=== PATIENT | female | born 1980 | race Hispanic/Latino ===

== ENCOUNTER 2016-11-12 17:38 | Observation (INO) | payer OTHER ==
[~2016-11-12] VITALS: Ht 160 cm; Wt 86.2 kg
[2016-11-12] MEDS ORDERED: LEVOTHYROXINE137 MCG PO (18:22)
[2016-11-12] MEDS ORDERED: FOLIC ACID1 M1 PO (18:22)
[2016-11-12] MEDS ORDERED: LIOTHYRONINE SO5 MC1 PO (18:22)
[2016-11-12] MEDS ORDERED: FLUTICASONE PRO16 GM NASB (18:23)
[2016-11-12] MEDS ORDERED: VITAMIN D1000 UNIT PO (18:23)
[2016-11-12] MEDS ORDERED: VITAMIN B122500 MC1 PO (18:24)
[2016-11-12] MEDS ORDERED: HYDROCODON-ACE1 EAC3 PO (18:25)
[2016-11-12] MEDS ORDERED: VITAMIN D350000 UNIT PO (18:25)
[2016-11-12] MEDS ORDERED: CYANOCOBAL1000 MCG/2 IM (18:25)
[2016-11-12] MEDS ORDERED: QSYMIA 7.5 MG-1 EACH (18:26)
--- NOTE | 2016-11-12 18:30 | ED GENERAL ADULT ---
See Addendum History of Present Illness General Chief Complaint: General Adult Stated Complaint: UNABLE TO SWALLOW S/P NERVE BLOCK Source: patient, ANESTHESIOLIGST Exam Limitations: no limitations Vital Signs & Intake/Output Vital Signs & Intake/Output Vital Signs Date Time Temp Pulse Resp B/P B/P Pulse O2 O2 Flow FiO2 Mean Ox Delivery Rate 11/13 0737 98.5 78 18 108/64 94 Room Air 11/12 2313 98.4 99 18 130/72 96 Room Air 11/12 2240 Room Air 11/12 2030 96 Room Air 11/128 97.0 98 18 124/76 96 Room Air 11/12 1747 98.4 80 16 124/80 98 Room Air Room Air ED Intake and Output 11/13 0000 11/12 1200 Intake Total Output Total Balance Patient 190 lb Weight Allergies Coded Allergies: No Known Allergies (11/12/16) Reconcile Medications Cholecalciferol (Vitamin D3) (Vitamin D3) 50,000 UNIT CAPSULE 1 CAP PO QTHURS SUPPLEMENT (Reported) Cyanocobalamin (Vitamin B-12) (Cyanocobalamin Injection) 1,000 MCG/ML VIAL 1 ML IM Q30D SUPPLEMENT (Reported) Fluticasone Propionate 50 MCG/ACTUATION SPRAY.SUSP 2 SPRAY NASB PRN ALLERGIES (Reported) Folic Acid 1 MG TABLET 1 TAB PO DAILY SUPPLEMENT (Reported) Hydrocodone/Acetaminophen (Hydrocodon-Acetaminoph 7.5-325) 7.5 MG-325 MG TABLET 1 TAB PO AD PRN PAIN (Reported) Levothyroxine Sodium 137 MCG TABLET 1 TAB PO DAILY THYROID (Reported) Liothyronine Sodium 5 MCG TABLET 1 TAB PO DAILY THYROID (Reported) Phentermine/Topiramate (Qsymia 7.5 MG-46 MG Capsule) (Unknown Strength) CPMP.24HR (Unknown Dose) UNKNOWN (Reported) Triage Note: PT BIBA FROM [facility] FOR INABILITY TO SWALLOW, UNABLE TO TAKE A DEEP BREATH, AND A HOARSE VOICE S/P RIGHT SUBCLAVICULAR NERVE BLOCK. PT IS ALERT AND ORIENTED. DENIES COMPLAINTS, STATES PAIN IN RIGHT ARM IS CONTROLED. PT WAS HAVING SURERY ON RIGHT THUMB DUE TO ARTHRITIS Triage Nurses Notes Reviewed? yes Onset: Gradual Duration: hour(s):, continues in ED Timing: single episode today Injury Environment: OR Severity: severe : No Patient currently breastfeeds: No HPI: Patient presents for evaluation of a hoarse voice, trouble swallowing and right thumb pain status post right thumb arthroplasty. 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 The patient is having difficulty swallowing preventing her from taking pain medications. According to the anesthesiologist this is a known and predictable complication of this particular block. Past History Travel History Traveled to [place] past 21 day No Medical History Any Pertinent Medical History? 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 No Review of Systems Review of Systems Constitutional: Reports: no symptoms. EENTM: Reports: see HPI. Respiratory: Reports: no symptoms. Cardiovascular: Reports: no symptoms. GI: Reports: no symptoms. Genitourinary: Reports: no symptoms. Musculoskeletal: Reports: no symptoms. Skin: Reports: no symptoms. Neurological/Psychological: Reports: no symptoms. Hematologic/Endocrine: Reports: no symptoms. Immunologic/Allergic: Reports: no symptoms. All Other Systems: Reviewed and Negative Physical Exam Physical Exam General Appearance: SEE BELOW Comments: Gen.: Well-nourished, well-developed, no acute respiratory distress. Hoarse voice. Head: Normocephalic, atraumatic. Eyes: Normal inspection bilaterally Ears: Normal inspection bilaterally Nose: Normal inspection Throat/mouth : Moist mucosa Neck: Supple, full range of motion, no goiter Heart: Regular rate and rhythm, no murmurs rubs or gallops Lungs: Mildly decreased air entry over the right chest Chest: Nontender Back: Normal range of motion Abdomen: Soft, nontender, nondistended, normal bowel sounds Extremities: Right thumb in a thumb spica splint Neurologic: Cranial nerves grossly intact, speech is clear Skin: warm and dry Psychiatric: Calm, cooperative, no apparent delusions or hallucinations Core Measures ACS in differential dx? No CVA/TIA Diagnosis: No Severe Sepsis Present: No Septic Shock Present: No Progress Differential Diagnoses I considered the following diagnoses in my evaluation of the patient: Complication of nerve block anesthesia Plan of Care: Orders Procedure Date/time Status Nothing by Mouth 11/13 B Active CBC WITHOUT DIFFERENTIAL 11/13 06 Complete BASIC ELECTROLYTES PLUS BUN&CR 11/13 06 Complete Pathway - chart 11/13 0429 Active Device(s) 11/13 0234 Active SWALLOW EVALUATION 11/13 UNK Active VTE Mechanical Prophylaxis 11/13 UNK Active Precautions 11/[address] HEAD WO IV CONTRAST 11/[address] HEAD WO IV CONTRAST 11/13 UNK Active Wound Care/Dressing 11/12 2312 Active Elevate 11/12 231 Active Vital Signs 11/12 2218 Active Teach/Educate 11/12 2218 Active Pain Treatment and Response 11/12 2218 Active Nutritional Intake, Monitor 11/12 2218 Active Isolation 11/12 2218 Active Intake & Output 11/12 2218 Active Patient Care Conference 11/12 2218 Active Activity/Ambulation 11/12 2218 Active Intake & Output 11/12 2029 Active Transfer patient to 11/12 2014 Active Patient Data 11/12 2013 Active Vital Signs 11/12 2013 Active Code Status 11/[address] in observation 11/12 2010 Active CBC WITHOUT DIFFERENTIAL 11/12 2006 Complete BASIC METABOLIC PANEL 11/12 2006 Complete Current Medications Sig/Penny Start time Last Medication Dose Stop Time Status Admin Levothyroxine Sodium 0.137 MG DAILY AC 11/13 0700 AC (Synthroid) Acetaminophen 1,000 MG Q6P PRN 11/13 0430 AC 11/13 (Ofirmev) 0807 Morphine Sulfate 2 MG Q4P PRN 11/13 0430 AC 11/13 (Morphine) 0459 Heparin Sodium 5,000 UNIT Q8 11/13 0139 AC (Porcine) Heparin Sodium 5,000 UNIT Q8 11/13 0139 CAN (Porcine) Dextrose/Sodium 1,000 ML ONCE ONE 11/12 2315 AC 11/12 Chloride 11/13 1234 2346 (D5-Normal Saline) Laboratory Tests 11/13/16 0615: Anion Gap 11, Estimated GFR > 60, BUN/Creatinine Ratio 20.0, CBC w Diff NO MAN DIFF REQ, RBC 3.97 L, MCV 91.7, MCH 31.5 H, RDW 12.9, MPV 9.4, Gran % 86.2 H, Lymphocytes % 6.7 L, Monocytes % 7.1, Eosinophils % 0, Basophils % 0 L, Absolute Granulocytes 13.5 H, Absolute Lymphocytes 1.0 L, Absolute Monocytes 1.1 H, Absolute Eosinophils 0, Absolute Basophils 0, PUBS MCHC 34.3 11/12/162033: Anion Gap 11, Estimated GFR > 60, BUN/Creatinine Ratio 30.0 H, Glucose 116 H, Calcium 8.8, CBC w Diff NO MAN DIFF REQ, RBC 4.24, MCV 92.0, MCH 31.4 H, RDW 12.8, MPV 8.5, Gran % 94.7 H, Lymphocytes % 3.5 L, Monocytes % 1.1 L, Eosinophils % 0, Basophils % 0.7, Absolute Granulocytes 12.7 H, Absolute Lymphocytes 0.5 L, Absolute Monocytes 0.1 L, Absolute Eosinophils 0, Absolute Basophils 0.1, PUBS MCHC 34.1 Diagnostic Imaging: Discussed w/RAD: Radiology Read. CXR Impression: PATIENT: MARIA DEL CARMEN DARLING PRESENT AGE: 36 PATIENT ACCOUNT NO: [id number] : 78 LOCATION: [facility] ORDERING PHYSICIAN: HOLA JAMA MD SERVICE DATE: 11/12/16 EXAM TYPE: RAD - XRY-CHEST XRAY, ONE VIEW ONLY EXAMINATION:\H\ \N\XR CHEST CLINICAL INFORMATION: Elevated right hemidiaphragm. Status post surgical clavicular block. COMPARISON: Abdominal x-ray September 2008. TECHNIQUE: Frontal view of the chest was obtained. FINDINGS: Low lung volumes. Lungs otherwise clear. Oval calcific density noted overlying the mediastinum just left of the spine at the level of the diaphragm measuring 10 x 7 mm The cardiac silhouette mediastinum pulmonary vascularity are normal. Bone and soft tissues unremarkable. IMPRESSION: No acute disease. Calcification overlying the mediastinum. Possible calcified lymph node DICTATED BY: HARLAN ART MD DATE/TIME DICTATED:11/12/162034 [employer] CONSULTANT: SHAWN DATE/TIME TRANSCRIBED:11/12/162034 CONFIDENTIAL, DO NOT COPY WITHOUT APPROPRIATE AUTHORIZATION. <Electronically signed in Other Vendor System> SIGNED BY: HARLAN ART MD 11/12/162041 Initial ED EKG: none Comments: 11/12/2016 8:41:38 PM patient signed out to Dr. Marshall at shift exchange consultant. Departure Departure Disposition: STILL A PATIENT Condition: Stable Clinical Impression Primary Impression: Adv eff nerve-block anes Qualifiers: Encounter type: initial encounter Qualified Code: T41.3X5A - Adverse effect of local anesthetics, initial encounter Referrals: ERIC SALMERON MD (PCP/Family) Departure Forms: Customer Survey General Discharge Information Observation Note Spoke With: HOLA CUEVA DO Physician Advisor Notified: HOLA CUEVA DO Place Patient In: Non-ED OBS Care Area Rationale for Observation: My rational for observation is as follows patient has difficulty swallowing and hoarse voice secondary to a complication of a subclavian nerve block used as anesthesia for right thumb surgery. The patient is unable to tolerate PO and is at risk of dehydration. In addition the patient's unable to take her pain medication so she is also suffering postoperative pain. In addition the patient is at risk of aspiration due to difficulty swallowing. I do not feel she is a good candidate for outpatient management and he circumstances given her INability to tolerate PO and take pain medications. She will likely return in worse clinical condition. I feel she requires a period of observation until the effects of the anesthesia wear off and she is able to swallow normally again. Critical Care Note Critical Care Note Critical Care Time: non-applicable
--- NOTE | 2016-11-12 19:10 | PN- Anesthesiology ---
Subjective Subjective: Ms. Yun was taken care of at a surgicenter this morning for R thumb surgery with Dr Barrett. An infraclavicular nerve block was done at approx 0900 with 30cc 05.% bupivacaine without apparent side effects or complications (per a discussion with the anesthesiologist who performed the block - a partner of janna ). Soon after the block was performed the patient developed a R sided Doug's syndrome. No analgesia was obtained in the extremity. Post-op in PACu the pt. was noted to have a weak voice, inability to swallow, R Horners, no analgesia. Because the patient would not be able to swallow oral analgesics or fluids and was at an increased risk for aspiration it was decided to send her to [place] [facility] rather than discharge home. In the ER Ms Yun appears comfortable and in no distress or respiratory distress. Although she is complaining of pain at her surgical site. Her voice is soft and she feels she can't take a big breath. There is ptosis of the R eyelid. She is able to handle her own secretions without coughing or difficulty. I discussed with her that this is likely due to the nerve block's local anesthetic effect on the surrounding structures and therefore affecting her diapragm and vocal cords. I advised her that she should stay NPO until her side effects resolve (15-18 hrs = [place] to 0300 11/13/16) and should stay in the hospital for observation until she is able to tolerate oral fluids and analgesics. I have discussed the above with Dr. Quiroga. Review of Systems: as above Objective Vital Signs and I&Os Vital Signs Date Time Temp Pulse Resp B/P B/P Pulse O2 O2 Flow FiO2 Mean Ox Delivery Rate 11/12 1747 98.4 80 16 124/80 98 Room Air Room Air Physical Exam: as above Assessment/Plan Assessment/Plan as above
--- NOTE | 2016-11-12 20:42 | RADIOLOGY REPORT ---
EXAMINATION:\H\ \N\XR CHEST CLINICAL INFORMATION: Elevated right hemidiaphragm. Status post surgical clavicular block. COMPARISON: Abdominal x-ray September 2008. TECHNIQUE: Frontal view of the chest was obtained. FINDINGS: Low lung volumes. Lungs otherwise clear. Oval calcific density noted overlying the mediastinum just left of the spine at the level of the diaphragm measuring 10 x 7 mm The cardiac silhouette mediastinum pulmonary vascularity are normal. Bone and soft tissues unremarkable. IMPRESSION: No acute disease. Calcification overlying the mediastinum. Possible calcified lymph node
[2016-11-12 20:43] LABS: ABSOLUTE BASOPHIL COUNT 0.1 /CUMM (0.0-0.2); ABSOLUTE EOSINOPHIL COUNT 0 /CUMM (0.0-0.7); ABSOLUTE GRANULOCYTE CT 12.7 /CUMM (1.4-6.5); ABSOLUTE LYMPH COUNT 0.5 /CUMM (1.2-3.4); ABSOLUTE MONOCYTE COUNT 0.1 /CUMM (0.10-0.60); BASOPHIL % 0.7 % (0.0-2.0); EOSINOPHIL % 0 % (0-5); MEAN CORPUSCULAR HGB 31.4 PG (27.0-31.0); MEAN CORPUSCULAR HGB CONC 34.1 G/DL (33.0-37.0); MEAN PLATELET VOLUME 8.5 FL (7.4-10.4); PLATELET COUNT 315 /CUMM (130-400); RBC DISTRIBUTION WIDTH 12.8 % (11.5-14.5); RED BLOOD CELL CT 4.24 /CUMM (4.20-5.40); WHITE BLOOD CELL COUNT 13.4 /CUMM (4.8-10.8)
[2016-11-12 20:58] LABS: GRANULOCYTE % 94.7 % (42.2-75.2)
[2016-11-12 23:13] VITALS: BP 130/72
--- NOTE | 2016-11-12 23:22 | History & Physical ---
General Information and HPI MD Statement: I have seen and personally examined MARIA DEL CARMEN DARLING and documented this H&P. The patient is a 36 year old F who presented with a patient stated chief complaint of [the patient is a 36-year-old female who is status post arthroplasty to the right thumb for severe arthritis. She had a right periclavicular nerve block and she developed dysphasia, right sided facial paresthesias, hoarseness and difficulty breathing. Although her symptoms are improving have not fully resolved and so she was placed in observation overnight to ensure no aspiration and that her symptoms do indeed completely resolve]. Source of Information: patient Exam Limitations: no limitations History of Present Illness: Patient is status post right thumb arthroplasty and periclavicular nerve block with dysphasia and difficulty breathing Allergies/Medications Allergies: Coded Allergies: No Known Allergies (11/12/16) Home Med list Cholecalciferol (Vitamin D3) (Vitamin D3) 50,000 UNIT CAPSULE 1 CAP PO QTHURS SUPPLEMENT (Reported) Cyanocobalamin (Vitamin B-12) (Cyanocobalamin Injection) 1,000 MCG/ML VIAL 1 ML IM Q30D SUPPLEMENT (Reported) Fluticasone Propionate 50 MCG/ACTUATION SPRAY.SUSP 2 SPRAY NASB PRN ALLERGIES (Reported) Folic Acid 1 MG TABLET 1 TAB PO DAILY SUPPLEMENT (Reported) Hydrocodone/Acetaminophen (Hydrocodon-Acetaminoph 7.5-325) 7.5 MG-325 MG TABLET 1 TAB PO AD PRN PAIN (Reported) Levothyroxine Sodium 137 MCG TABLET 1 TAB PO DAILY THYROID (Reported) Liothyronine Sodium 5 MCG TABLET 1 TAB PO DAILY THYROID (Reported) Phentermine/Topiramate (Qsymia 7.5 MG-46 MG Capsule) (Unknown Strength) CPMP.24HR (Unknown Dose) UNKNOWN (Reported) Past History Travel History Traveled to [place] past 21 day No Medical History Neurological: NONE EENT: NONE Cardiovascular: NONE Respiratory: NONE Gastrointestinal: NONE Hepatic: NONE Renal: NONE Musculoskeletal: ARTHRITIS Psychiatric: NONE Endocrine: hypothyroidism Blood Disorders: NONE 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 Psychosocial History Smoking Status: Never Smoked ETOH Use: denies use Illicit Drug Use: denies illicit drug use Review of Systems Review of Systems Constitutional: Denies: fever. EENTM: Reports: see HPI. Cardiovascular: Denies: chest pain. Respiratory: Reports: short of breath. GI: Denies: abdominal pain. Genitourinary: Reports: no symptoms. Musculoskeletal: Reports: joint pain. Skin: Denies: rash. Neurological/Psychological: Reports: no symptoms. Hematologic/Endocrine: Reports: no symptoms. Immunologic/Allergic: Reports: no symptoms. All Other Systems: Reviewed and Negative Exam & Diagnostic Data Last 24 Hrs of Vital Signs/I&O Vital Signs Date Time Temp Pulse Resp B/P B/P Pulse O2 O2 Flow FiO2 Mean Ox Delivery Rate 11/12 2313 98.4 99 18 130/72 96 Room Air 11/12 2240 Room Air 11/12 2030 96 Room Air 11/128 97.0 98 18 124/76 96 Room Air 11/12 1747 98.4 80 16 124/80 98 Room Air Room Air Presently the patient is in mild distress secondary to right thumb pain HEENT exam: Normocephalic and atraumatic, positive gag reflex, no facial paresthesias appreciated. Neck exam is normal there is no hematoma Heart is regular rate and rhythm Lungs are clear Her right thumb is in a thumb spica splint. The exposed fingers have normal capillary refill and full range of motion and normal color Neurological exam she is awake alert and oriented 3 no focal weakness, Physical Exam General Appearance Alert, Oriented X3, Cooperative Skin No Rashes Skin Temp/Moisture Exam: Warm/Dry Sepsis Skin Exam (color): Normal for Ethnicity HEENT Atraumatic, PERRLA, EOMI Neck Supple Lymphatic Axillary nl Cardiovascular Regular Rate Lungs Clear to Auscultation Neurological Normal Speech Extremities No Edema Vascular Normal Pulses Diagnostic Data CXR Results napd Assessment/Plan Assessment: Hoarseness, dysphasia, facial paresis following right periclavicular nerve block Status post right thumb arthroplasty NO PO MEDS, NPO, REEVALUATE IN THE AM As Ranked By This Provider Problem List: 1. Adv eff nerve-block anes Qualifiers Encounter type: initial encounter Qualified Code: T41.3X5A - Adverse effect of local anesthetics, initial encounter Core Measures/Miscellaneous Acute Coronary Syndrome ACS Diagnosis: No Cerebrovascular Accident CVA/TIA Diagnosis: No Congestive Heart Failure CHF Diagnosis: No Venous Thromboembolism VTE Risk Factors: Surgery No [facility] VTE prophylaxis d/t: No contraindications No VTE Pharm Prophylaxis d/t: No contraindications VTE Diagnosis: No VTE Type: NONE VTE Confirmed by (Test): NONE Severe Sepsis Severe Sepsis Present: No Septic Shock Septic Shock Present: No Miscellaneous Documentation Attending Case Discussed With: OSWALDO MILLER M.D Primary Care Physician: ERIC SALMERON MD Patient sees these Specialists Level of Patient Care: General Medicine
[2016-11-13 07:37] VITALS: BP 108/64
[2016-11-13 07:57] LABS: ABSOLUTE BASOPHIL COUNT 0 /CUMM (0.0-0.2); ABSOLUTE EOSINOPHIL COUNT 0 /CUMM (0.0-0.7); ABSOLUTE GRANULOCYTE CT 13.5 /CUMM (1.4-6.5); ABSOLUTE MONOCYTE COUNT 1.1 /CUMM (0.10-0.60); BASOPHIL % 0 % (0.0-2.0); EOSINOPHIL % 0 % (0-5); GRANULOCYTE % 86.2 % (42.2-75.2); HEMATOCRIT 36.4 % (37-47); MEAN CORPUSCULAR HGB 31.5 PG (27.0-31.0); MEAN CORPUSCULAR HGB CONC 34.3 G/DL (33.0-37.0); MEAN CORPUSCULAR VOLUME 91.7 FL (81.0-99.0); MEAN PLATELET VOLUME 9.4 FL (7.4-10.4); PLATELET COUNT 302 /CUMM (130-400); RBC DISTRIBUTION WIDTH 12.9 % (11.5-14.5); RED BLOOD CELL CT 3.97 /CUMM (4.20-5.40)
--- NOTE | 2016-11-13 08:04 | Event Note ---
Event Note Event Note: 11/13/16 8am: I was signed out this patient by Dr. Lentz. Was told to observe for resolution of dysphagia, face droop, dizziness, and difficulty breathing. 9am: I saw the patient, reports that she was in 9/10 pain. She has minimal relief with acetaminophen iv and morphine iv, and had good pain relief with dilaudid given yesterday. She was prescribed vicodin post procedure. Facial droop has resolved. She has not taken anything by mouth due to dysphagia. Awaiting swallow evaluation. During rounds with the whole medical team, the team felt that the most likely reason for patient's complaints are transient complication of infraclavicular anesthesia, given that her symptoms have mostly resolved (other than pain with deep inspiration) about 24 hours post the injection (pt received the injection about 830 am 11/12/16). She was felt to be at low risk for TIA. After discussing this with the patient, the patient agreed to undergo TIA workup - including transfer to telemetry for 24 hour cardiac monitoring, carotid ultrasound, ct head without contrast, and echocardiogram. EKG was done. 11am: Pt transferred to telemetry. Signed out to Dr. Mio Smith.
--- NOTE | 2016-11-13 09:04 | Patient Discharge Instructions ---
Discharge Instructions General Discharge Information You were seen/treated for: Dysphagia Difficulty breathing Special Instructions: Please follow up with your PCP and orthopedist Dr. Barrett in 1 week. Diet Continue normal diet: Yes Activity Full Activity/No Limits: Yes Acute Coronary Syndrome Inclusion Criteria At DC or during hospital stay patient has or had the following: ACS DIAGNOSIS No Discharge Core Measures Meds if any: Prescribed or Continued at Discharge Meds if any: NOT Prescribed or Continued at Discharge Congestive Heart Failure Inclusion Criteria At DC or during hospital stay patient has or had the following: CHF DIAGNOSIS No Discharge Core Measures Meds if any: Prescribed or Continued at Discharge Meds if any: NOT Prescribed or Continued at Discharge Cerebrovascular accident Inclusion Criteria At DC or during hospital stay patient has or had the following: CVA/TIA Diagnosis No Discharge Core Measures Meds if any: Prescribed or Continued at Discharge Meds if any: NOT Prescribed or Continued at Discharge Venous thromboembolism Inclusion Criteria VTE Diagnosis No VTE Type NONE VTE Confirmed by (Test) NONE Discharge Core Measures - Per Current guidelines, there needs to be overlap - treatment for the first 5 days of Warfarin therapy. - If discharged on Warfarin prior to 5 days of - overlap therapy, the patient will need to be - assessed for post discharge needs including - *Post discharge parental anticoagulation - *Warfarin and/or parental anticoagulation education - *Follow up date to check INR post discharge At least 5 days overlap therapy as Inpatient No Meds if any: Prescribed or Continued at Discharge Note: Overlap Therapy is Warfarin and Anticoagulant Meds if any: NOT Prescribed or Continued at Discharge
[2016-11-13 09:10] LABS: WHITE BLOOD CELL COUNT 15.7 /CUMM (4.8-10.8)
--- NOTE | 2016-11-13 10:37 | CT SCAN REPORT ---
EXAMINATION: CT HEAD WITHOUT CONTRAST CLINICAL INFORMATION: Evaluate for CVA. Facial droop. COMPARISON: None TECHNIQUE: Contiguous axial imaging was performed from the skull base to vertex without intravenous administration of contrast. DLP: 615.74 mGy-cm FINDINGS: There is no evidence of acute intracranial hemorrhage or territorial infarction. No abnormal mass effect or midline shift is seen. Botello to white matter differentiation is well preserved. No extra-axial fluid collections are identified. The ventricles are normal in size. There is no abnormal attenuation within the brain parenchyma. The osseous structures and soft tissues are normal. The mastoid air cells and visualized portions of the paranasal sinuses are well aerated. IMPRESSION: No acute intracranial pathology. If clinically indicated, further assessment with MRI may be of value.
--- NOTE | 2016-11-13 11:14 | PN- Att Addend ---
Attending Addendum Attending Brief Note "The patient is a 36 year old F who presented with a patient stated chief complaint of [the patient is a 36-year-old female who is status post arthroplasty to the right thumb for severe arthritis. She had a right periclavicular nerve block and she developed dysphasia, right sided facial paresthesias, hoarseness and difficulty breathing. Although her symptoms are improving have not fully resolved and so she was placed in observation overnight to ensure no aspiration and that her symptoms do indeed completely resolve". Family history of stroke. HEENT exam: Normocephalic and atraumatic, positive gag reflex, no facial paresthesias appreciated. Neck exam is normal there is no hematoma Heart is regular rate and rhythm Lungs are clear Her right thumb is in a thumb spica splint. The exposed fingers have normal capillary refill and full range of motion and normal color Neurological exam she is awake alert and oriented 3 no focal weakness. VITALS 98.4 78 108/64 98 on RA. ASSESSMENT 1. R sided Doug's syndrome. 2. R/O TIA. PLAN transfer to tele, observation status patient agreeable to w/u for tia, CT head, carotid US, ECHO, hbaic, lipid profile. swallow eval/pt consult gi/dvt prophyalxis full code.
--- NOTE | 2016-11-13 11:16 | PN- Housestaff ---
See Addendum Subjective Follow-up For: dysphagia right facial droop Subjective: 11/13/16 8am: I was signed out this patient by Dr. Lentz. Was told to observe for resolution of dysphagia, face droop, dizziness, and difficulty breathing. 9am: I saw the patient, reports that she was in 9/10 pain. She has minimal relief with acetaminophen iv and morphine iv, and had good pain relief with dilaudid given yesterday. She was prescribed vicodin post procedure. Facial droop has resolved. She has not taken anything by mouth due to dysphagia. Awaiting swallow evaluation. During rounds with the whole medical team, the team felt that the most likely reason for patient's complaints are transient complication of infraclavicular anesthesia, given that her symptoms have mostly resolved (other than pain with deep inspiration) about 24 hours post the injection (pt received the injection about 830 am 11/12/16). She was felt to be at low risk for TIA. After discussing this with the patient, the patient agreed to undergo TIA workup - including transfer to telemetry for 24 hour cardiac monitoring, carotid ultrasound, ct head without contrast, and echocardiogram. EKG was done. 11am: Pt transferred to telemetry. Signed out to Dr. Mio Smith. Review of Systems Constitutional: Reports: see HPI. Objective Last 24 Hrs of Vital Signs/I&O Vital Signs Date Time Temp Pulse Resp B/P B/P Pulse O2 O2 Flow FiO2 Mean Ox Delivery Rate 11/13 0737 98.5 78 18 108/64 94 Room Air 11/12 2313 98.4 99 18 130/72 96 Room Air 11/12 2240 Room Air 11/12 2030 96 Room Air 11/128 97.0 98 18 124/76 96 Room Air 11/12 1747 98.4 80 16 124/80 98 Room Air Room Air Intake & Output 11/13 1600 11/13 0800 11/13 0000 Intake Total 600 Output Total Balance 600 Intake, IV 600 Intake, Oral 0 Patient 86.183 kg Weight Physical Exam General Appearance: Alert, Oriented X3, Cooperative, No Acute Distress Cardiovascular: Regular Rate, Normal S1, Normal S2, No Murmurs Lungs: Clear to Auscultation, Normal Air Movement Abdomen: Normal Bowel Sounds, Soft, No Tenderness Neurological: Normal Speech, Strength at 5/5 X4 Ext, Normal Tone, Sensation Intact, Cranial Nerves 3-12 NL Extremities: No Edema, right arm wrapped Vascular: Normal Pulses, Pulses Symmetrical Current Medications: Current Medications Sig/Penny Start time Last Medication Dose Route Stop Time Status Admin Acetaminophen 1,000 MG Q6P PRN 11/13 0430 AC 11/13 IV 0807 Dextrose/Sodium 1,000 ML ONCE ONE 11/12 2315 AC 11/12 Chloride IV 11/13 1234 2346 Heparin Sodium 5,000 UNIT Q8 11/13 0139 AC (Porcine) SC Heparin Sodium 5,000 UNIT Q8 11/13 0139 CAN (Porcine) SC Hydromorphone HCl 0.5 MG ONCE ONE 11/12 2315 DC 11/12 IV 11/12 2316 2346 Levothyroxine Sodium 0.137 MG DAILY 11/13 0700 AC PO Morphine Sulfate 2 MG Q4P PRN 11/13 043 AC 11/13 IV 0940 Morphine Sulfate 0 .STK-MED ONE 11/13 2011 DC .ROUTE Morphine Sulfate 4 MG ONCE ONE 11/12 1900 DC 11/12 IV 11/12 1902015 Ondansetron HCl 4 MG ONCE ONE 11/12 2315 DC IV 11/12 2316 Last 24 Hrs of Lab/Rigo Results Last 24 Hrs of Labs/Mics: Laboratory Tests 11/13/16 0615: Anion Gap 11, Estimated GFR > 60, BUN/Creatinine Ratio 20.0, CBC w Diff NO MAN DIFF REQ, RBC 3.97 L, MCV 91.7, MCH 31.5 H, RDW 12.9, MPV 9.4, Gran % 86.2 H, Lymphocytes % 6.7 L, Monocytes % 7.1, Eosinophils % 0, Basophils % 0 L, Absolute Granulocytes 13.5 H, Absolute Lymphocytes 1.0 L, Absolute Monocytes 1.1 H, Absolute Eosinophils 0, Absolute Basophils 0, PUBS MCHC 34.3 11/12/162033: Anion Gap 11, Estimated GFR > 60, BUN/Creatinine Ratio 30.0 H, Glucose 116 H, Calcium 8.8, CBC w Diff NO MAN DIFF REQ, RBC 4.24, MCV 92.0, MCH 31.4 H, RDW 12.8, MPV 8.5, Gran % 94.7 H, Lymphocytes % 3.5 L, Monocytes % 1.1 L, Eosinophils % 0, Basophils % 0.7, Absolute Granulocytes 12.7 H, Absolute Lymphocytes 0.5 L, Absolute Monocytes 0.1 L, Absolute Eosinophils 0, Absolute Basophils 0.1, PUBS MCHC 34.1 Assessment/Plan Assessment: 36 yo F who is in observation for dysphagia, painful deep inspiration, right facial droop, and hoarseness s/p right thumb arthroplasty, most likely due to complication of infraclavicular nerve block, symptoms resolving. # Dysphagia, Hoarseness, Right facial droop, Painful Deep Inspiration (resolving ) - Pt has low probability for TIA/CVA given age and negative cardiac history. However, has positive family history of stroke and ABCD2 score is 4. It is therefore reasonable to perform CVA/TIA workup, pt agreeable * Transfer to telemetry observation for 24 hours of telemetry monitoring * Follow up head CT, echo, doppler US of carotids, Lipid panel and HbA1c * Swallow eval before advancing diet, now NPO, fluids running at 75ml/hr # POD1 s/p Right thumb arthroplasty: related to arthritis. Patient complaining of pain this morning. Has been receiving Acetaminophen 1000mg IV q6h. Had Dilaudid 0.5mg x1 dose, Morphine 4mg IV x1 dose, and Morphine 2mg IV q4h PRN. * Continue pain control with Morphine 2mg IV q4h PRN, and Acetaminophen , consider adding dilaudid * Pt has extra strength vicodin prescribed post procedure # Hypothyroidism: on Levothyroxine 137mcg daily, Liothyronine 5mcg daily. * Continue outpatient regimen # Menorrhagia: recent uterine biopsy was normal. * Daily CBC while in obs * Continue followup with PCP and WEB CONTENT EDITOR as needed Diet: NPO pending swallow eval DVT prophylaxis: HSQ PP: morphine and acetaminophen Code Status: Full Problem List: 1. Adv eff nerve-block anes Pain Ratin Pain Location: right thumb Pain Goal: Pain 7 or less Pain Plan: morphine acetaminophen Tomorrow's Labs & Rationales: cbc leukocytosis most likely reactive DVT/Prophylaxis: mechanical, pharmacological
--- NOTE | 2016-11-13 11:24 | PN- Student ---
Subjective Subjective: Medical Student H&P: CC: dysphagia, painful deep breathing, and hoarseness of voice HPI: Hanna Yun is a 36 yo F who presented to the ED on 11/12/16 s/p right thumb arthroplasty complicated by adverse effects of an infraclavicular nerve block. This was a schedule outpatient surgery at an outlying facility. She states immediately after receiving the injection of 0.5% Bupivacaine she had difficulty swallowing, experienced pain with deep breathing, began coughing, and experienced right facial droop/right sided Doug's like symptoms. Analgesia of the RUE was never acheived. Surgery proceeded as scheduled. In PACU, the patient was still experiencing these symptoms. She was unable to swallow liquids and began choking and coughing when attempting to swallow. She experienced lightheadedness, dizziness, felt hot, and had nausea. D/t concerns for safety, the staff at the outpatient surgery center recommended she be transferred to the ED for further evaluation. In the ED, the patient reported some improvement in symptoms. Her vitals were normal (T: 98.4, HR 80 bpm, BP 124/80 mmHg, RR 16, 98% on RA). She denied vision changes, confusion, slurred speech, shortness of breath, and palpitations. She is unsure if she was experiencing weakness. Today, the patient complains of significant pain. She states she feels she is improving. She denies any new symptoms. She is pleasant and agreeable to further diagnostic workup. PMH: arthritis, hypothyroidism, menorrhagia PSH: Caesarean section (1999, 2002), tubal ligation (2004), bladder sling (2-3 years ago), cryoablation of uterus, uterine biopsy (2 - 3 weeks ago) Current Medications Sig/Penny Start time Last Medication Dose Route Stop Time Status Admin Acetaminophen 1,000 MG Q6P PRN 11/13 0430 AC 11/13 IV 0807 Dextrose/Sodium 1,000 ML ONCE ONE 11/125 AC 11/12 Chloride IV 11/13 1234 2346 Heparin Sodium 5,000 UNIT Q8 11/13 0139 AC (Porcine) SC Heparin Sodium 5,000 UNIT Q8 11/13 0139 CAN (Porcine) SC Hydromorphone HCl 0.5 MG ONCE ONE 11/12 2315 DC 11/12 IV 11/12 2316 2346 Levothyroxine Sodium 0.137 MG DAILY AC 11/13 0700 AC PO Morphine Sulfate 2 MG Q4P PRN 11/13 0430 AC 11/13 IV 0940 Morphine Sulfate 0 .STK-MED ONE 11/13 2011 DC .ROUTE Morphine Sulfate 4 MG ONCE ONE 11/12 1900 DC 11/12 IV 11/12 1902015 Ondansetron HCl 4 MG ONCE ONE 11/12 2315 DC IV 11/12 2316 Home Meds: * Vitamin D3, 5000u PO every * Vitamin B12, 1000 mcg IM monthly * Vitamin B9, 1mg daily * Fluticasone, 50mcg 2 sprays prn * Hydrocodone-Acetaminophen, 7.5mg - 325mg po PRN * Levothyroxine, 137mcg daily * Liothyronine, 5mcg daily * Phentermine-Topiramate, 7.5 mg - 46mg Social: denies tobacco, alcohol, and illicit drug use. with 4 children, lives at home with and kids. 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 Independent with ADLs. Family: * Mother: HTN, asthma, hypothyroidism, type 2 DM, depression * Father: HTN, CVA, arthritis, schizophrenia, depression * Multiple sisters with hypothyroidism ROS: General: reports no symptoms Neuro: as in HPI, otherwise reports no symptoms HEENT: reports no symptoms CV: reports no symptoms Pulmonary: reports no symptoms GI: reports no symptoms : reports no symptoms MSK: reports arthralgias, otherwise denies. Integument: reports no symptoms Psych: reports no symptoms Objective Objective: Vital Signs Date Time Temp Pulse Resp B/P B/P Pulse O2 O2 Flow FiO2 Mean Ox Delivery Rate 11/13 0737 98.5 78 18 108/64 94 Room Air 11/12 2313 98.4 99 18 130/72 96 Room Air 11/12 2240 Room Air 11/12 2029 96 Room Air 11/13 2027 97.0 98 18 124/76 96 Room Air 11/12 1747 98.4 80 16 124/80 98 Room Air Room Air Intake & Output 11/13 1600 11/13 0800 11/13 0000 Intake Total 600 Output Total Balance 600 Intake, IV 600 Intake, Oral 0 Patient 190 lb Weight General: A&O x3, NAD Neuro: Cranial nerves grossly intact. No focal deficits noted. Hoarseness improving. Moves all extremities spontaneously. Full strength in BLE, LUE. RUE exam limited d/t recent surgery and casting. HEENT: atraumatic, dry oral mucosa. Neck: supple without adenopathy. ROM intact. CV: normal S1, normal S2. No murmurs. Pulmonary: CTA with normal air movement. GI: abdomen soft, non-tender. Bowel Sounds present. Extremities: no clubbing or cyanosis. RUE in soft cast, movement of fingers intact with capillary refill <2 seconds. Integument: no rashes or breakdown. Psych: pleasant and cooperative. Results Results: Laboratory Tests 11/13/16 0615: Anion Gap 11, Estimated GFR > 60, BUN/Creatinine Ratio 20.0, CBC w Diff NO MAN DIFF REQ, RBC 3.97 L, MCV 91.7, MCH 31.5 H, RDW 12.9, MPV 9.4, Gran % 86.2 H, Lymphocytes % 6.7 L, Monocytes % 7.1, Eosinophils % 0, Basophils % 0 L, Absolute Granulocytes 13.5 H, Absolute Lymphocytes 1.0 L, Absolute Monocytes 1.1 H, Absolute Eosinophils 0, Absolute Basophils 0, PUBS MCHC 34.3 11/12/162033: Anion Gap 11, Estimated GFR > 60, BUN/Creatinine Ratio 30.0 H, Glucose 116 H, Calcium 8.8, CBC w Diff NO MAN DIFF REQ, RBC 4.24, MCV 92.0, MCH 31.4 H, RDW 12.8, MPV 8.5, Gran % 94.7 H, Lymphocytes % 3.5 L, Monocytes % 1.1 L, Eosinophils % 0, Basophils % 0.7, Absolute Granulocytes 12.7 H, Absolute Lymphocytes 0.5 L, Absolute Monocytes 0.1 L, Absolute Eosinophils 0, Absolute Basophils 0.1, PUBS MCHC 34.1 11/12/16 CXR: IMPRESSION: No acute disease. Calcification overlying the mediastinum. Possible calcified lymph node Assessment/Plan Assessment: Hanna Yun is a 36 yo F who is in observation for dysphagia, painful deep inspiration, right facial droop, and hoarsness s/p right thumb arthroplasty and complicated infraclavicular nerve block. Plan: Dysphagia, Hoarseness, Right facial droop, Painful Deep Inspiration: Resolving this morning, with no new onset or worsening of symptoms. Pt has low probability for TIA/CVA given age and negative cardiac history. However, has positive family history of stroke and ABCD2 score is 4. It is therefore reasonable to perform CVA/TIA workup. * Will get head CT, EKG, Echo, Doppler US of carotids * Lipid panel and HbA1c * Transfer to telemetry observation for 24 hours of telemetry monitoring * Swallow study before advancing diet POD1 s/p Right thumb arthroplasty: related to arthritis. Patient complaining of pain this morning. Has been receiving Acetaminophen 1000mg IV q6h. Had Dilaudid 0.5mg x1 dose, Morphine 4mg IV x1 dose, and Morphine 2mg IV q4h PRN. * Continue pain control with Morphine 2mg IV q4h PRN, and Acetaminophen as described * Switch to Vicodin home dose when able to tolerate PO Hypothyroidism: on Levothyroxine 137mcg daily, Liothyronine 5mcg daily. * Continue outpatient regimen Menorrhagia: recent uterine biopsy secondary to 2 weeks of menstruation, was revealed to be normal. * Daily CBC while in obs * Continue followup with PCP and INSURANCE SALES SUPERVISOR as needed Code Status: Full DVT prophylaxis: HSQ Diet: NPO pending swallow eval
[2016-11-13 11:30] VITALS: BP 120/72
--- NOTE | 2016-11-13 12:26 | ULTRASOUND REPORT ---
EXAMINATION: US DUPLEX CAROTID AND VERTEBRAL CLINICAL INFORMATION: 36-year-old female with facial droop. COMPARISON: None TECHNIQUE: Real-time ultrasound and Doppler techniques (integrating B-mode 2D vascular images, Doppler spectral analysis and color flow Doppler imaging) were utilized to interrogate the extracranial carotid and vertebral arteries bilaterally. The degree of stenosis determined by criteria similar to NASCET. FINDINGS: No plaque is seen at the carotid bifurcations or within the internal carotid arteries. All velocities are within normal limits as follows: Right: The common carotid artery velocity is 87 cm/s. The internal carotid artery velocities are 76 cm/s systolic and 28 cm/s diastolic. The external carotid artery velocity is 106 cm/s. Left: The common carotid artery velocity is 79 cm/s. The internal carotid artery velocities are 84 cm/s systolic and 32 cm/s diastolic. The external carotid artery velocity is 120 cm/s. ADDITIONAL FINDINGS: 1. The vertebral arteries show antegrade flow. 2. The brachial artery pressures are relatively symmetrical. 3. The external carotid arteries appear normal. 4. The thyroid gland appears heterogeneous. IMPRESSION: 1. No evidence of a hemodynamically significant stenosis involving the internal carotid arteries. 2. Heterogeneous thyroid gland.
--- NOTE | 2016-11-13 13:58 | ECHOCARDIOGRAM REPORT ---
MARIA DEL CARMEN DARLING Age: 36 : 1980 Gender: F Exam Date: 11/13/2016 11:23 Exam Location: [address] Ht (in): 63 Wt (lb): 190 BSA: 1.99 BP: 108 / 64 Ordering Physician: ERIC COOLEY MD Referring Physician: ERIC COOLEY MD Technologist: Drew Joseph [facility] Room Number: [id number] Indications: TIA Rhythm: Sinus Technical Quality: Good FINDINGS Left Ventricle Normal left ventricular size, wall thickness and systolic function with no obvious regional wall motion abnormalities. Normal left ventricular diastolic filling pattern for age. The ejection fraction is visually estimated at >65 %. Right Ventricle The right ventricle is normal in size and function. Right Atrium The right atrium is normal in size. Left Atrium The left atrium is normal in size. The interatrial septum is intact. Mitral Valve The mitral valve is normal in structure and function. There is mild mitral regurgitation. Aortic Valve Structurally normal aortic valve without significant sclerosis or stenosis. There is no aortic regurgitation. Tricuspid Valve The tricuspid valve is normal in structure and function. There is trace tricuspid regurgitation. Pulmonary artery systolic pressure is normal. Pulmonic Valve Structurally normal pulmonic valve. There is trace pulmonic regurgitation. Pericardium Normal pericardium without effusion. No pleural effusion. Great Vessels Normal aortic root dimension. The aortic arch and great vessels are well seen and are normal. CONCLUSIONS No significant chamber abnormalities. No significant valve abnormalities. Normal transthoracic echocardiogram. Physiologic valvular regurgitation. Den Brooks M.D. (Electronically Signed) Final Date: 13 Nov 2016 13:57 MEASUREMENTS (Male / Female) Normal Values 2D ECHO LV Diastolic Diameter PLAX 4.4 cm 4.2 - 5.9 / 3.9 - 5.3 cm LV Systolic Diameter PLAX 3.1 cm 2.1 - 4.0 cm LV Fractional Shortening PLAX 29.5 % 25 - 46 % LV Ejection Fraction 2D Teich 56.8 % IVS Diastolic Thickness 0.8 cm LVPW Diastolic Thickness 0.8 cm LV Relative Wall Thickness 0.4 RV Internal Dim ED PLAX 3.7 cm 1.9 - 3.8 cm LVOT Diameter 1.9 cm Aortic Root Diameter 2.8 cm LA Systolic Diameter LX 3.5 cm 3.0 - 4.0 / 2.7 - 3.8 cm LA Volume 69.0 cm 18 - 58 / 22 - 52 cm Ascending Aorta Diameter 2.4 cm DOPPLER MV Peak Velocity 114.0 cm/s MV Peak Gradient 5.2 mmHg MV Mean Velocity 57.5 cm/s MV Mean Gradient 2.0 mmHg Mitral E Point Velocity 87.9 cm/s Mitral A Point Velocity 73.5 cm/s Mitral E to A Ratio 1.2 MV PHT Velocity 113.0 cm/s MV Deceleration Willacy 360.0 cm/s MV Pressure Half Time 94.2 ms MV Area PHT 2.3 cm MV Deceleration Time 183.0 ms TR Peak Velocity 225.0 cm/s TR Peak Gradient 20.3 mmHg Right Atrial Pressure 5.0 mmHg Pulmonary Artery Systolic Pressu 25.3 mmHg Right Ventricular Systolic Press 25.3 mmHg PV Peak Velocity 75.8 cm/s PV Peak Gradient 2.3 mmHg PV Mean Velocity 50.8 cm/s PV Mean Gradient 1.0 mmHg PV Velocity Time Integral 20.3 cm LV E' Lateral Velocity 15.9 cm/s Mitral E to LV E' Lateral Ratio 5.5 LV E' Septal Velocity 12.4 cm/s Mitral E to LV E' Septal Ratio 7.1
[2016-11-13] MEDS ORDERED: DILAUDID2 M1 PO (15:31)
[2016-11-13 16:12] VITALS: BP 126/72
--- NOTE | 2016-11-13 18:21 | Event Note ---
Event Note Event Note: Per the patient's orthopedist Dr. Barrett who came by to see her, the patient is stable for discharge. She was instructed to follow up with Dr. Barrett on Wednesday the as scheduled.
== END 2016-11-13 18:53 ==
LOC: ERH 17:38 → ERHI 20:11 → 1NO 20:11 → ENRESERV 20:59 → ENTRNSPT 21:44 → 2NB 22:15 → CMPTRNSPT 22:30 → 1NO 11-13 10:00
PROVIDERS: Emergency Medicine; Student in an Organized Health Care Education/Training Program; ADMIT Internal Medicine
DX: R13.10 Dysphagia, unspecified (principal); R29.810 Facial weakness; R42 Dizziness and giddiness; R49.0 Dysphonia; E03.9 Hypothyroidism, unspecified; T41.3X5A Adverse effect of local anesthetics, initial encounter
CPT/HCPCS: 6040; 36415; 82436; 92610-GN; 93005; 93010; 93306; 96374; 96375; 96376; G0378; G8996-GN; G8997-GN; G8998-GN; J1170; J1644; J2270; J2405; J7042